=== PATIENT | female | born 1945 | race Caucasian/White ===

== ENCOUNTER 2018-09-27 08:23 | Day surgery (SDC) | payer OTHER ==
[2018-09-27] MEDS ORDERED: LIDOCAINE 2% (SDV) 5 ML INJ (09:24)
[2018-09-27] MEDS ORDERED: PROPOFOL 40 ML (09:24)
== END 2018-09-27 12:31 | disposition home or self-care (01) ==
LOC: GIL 08:23
DX: Z12.11 Encounter for screening for malignant neoplasm of colon (principal); K64.8 Other hemorrhoids; E11.9 Type 2 diabetes mellitus without complications; I10 Essential (primary) hypertension; E78.5 Hyperlipidemia, unspecified
CPT/HCPCS: 45378; 82962